=== PATIENT | female | born 1940 | race Asian ===

== ENCOUNTER 2018-06-15 16:54 | Emergency (ER) | payer MEDICARE, MEDICAID ==
[~2018-06-15] VITALS: Ht 152.4 cm; Wt 45.4 kg
[2018-06-15 17:02] VITALS: Ht 152.4 cm; Wt 45.4 kg
[2018-06-15 17:47] LABS: BASOPHIL % 0.5 % (0-2); PLATELET COUNT 262 x10^3mcL (130-400); RED CELL DISTRIBUTION WIDTH 12.5 % (11.5-14.5)
[2018-06-15 18:25] LABS: CALCIUM 8.7 mg/dL (8.5-10.1); CARBON DIOXIDE 30.9 mmol/L (21-32); CHLORIDE SERUM 101 mmol/L (98-107); CREATININE SERUM 0.9 mg/dL (0.6-1.0); GLUCOSE SERUM 137 mg/dL (74-106); POTASSIUM SERUM 3.2 mmol/L (3.5-5.1); SODIUM SERUM 138 mmol/L (136-145)
[2018-06-15 18:31] LABS: ALKALINE PHOSPHATASE 57 U/L (46-116); ALT/SGPT 29 U/L (14-59); AST/SGOT 27 U/L (15-37); BILIRUBIN TOTAL 0.17 mg/dL (0.20-1.00); TOTAL PROTEIN, SERUM 6.2 g/dL (6.4-8.2)
[2018-06-15 20:32] VITALS: BP 108/50
== END 2018-06-15 20:53 | disposition short-term general hospital (02) ==
LOC: ED 16:54
PROVIDERS: Emergency Medicine
DX: R04.0 Epistaxis (principal); D64.9 Anemia, unspecified; E87.6 Hypokalemia; R55 Syncope and collapse; I10 Essential (primary) hypertension
CPT/HCPCS: 36415; J7030